=== PATIENT | female | born 1965 | race Asian ===

== ENCOUNTER 2017-03-17 11:40 | Emergency (ER) | payer OTHER ==
[2017-03-17 11:48] VITALS: BP 153/93
--- NOTE | 2017-03-17 12:16 | XRAY Preliminary Report ---
Exam: XR FINGER(S) LT IMPRESSION: No fracture. Flexion at the fourth DIP joint in all views. [facility] SITE ID: [id number]
--- NOTE | 2017-03-17 12:18 | XRAY Report ---
EXAM: LEFT FOURTH DIGIT RADIOGRAPHY EXAM DATE: 03/17/2017 12:08 PM. CLINICAL HISTORY: Trauma; jammed finger while cleaning today. Pain. COMPARISON: None. TECHNIQUE: 3 views. FINDINGS: Bones: No fracture or focal osseous lesion. Joints: The fourth DIP joint is flexed in all 3 views. No dislocation. Soft Tissues: No definite soft tissue swelling. IMPRESSION: No fracture. Flexion at the fourth DIP joint in all views. [facility] Referring Provider Line: [phone] SITE ID: [id number]
--- NOTE | 2017-03-17 12:33 | ED Physician Documentation ---
PD HPI UPPER EXT INJURY - Stated complaint Stated Complaint: L FINGER INJURY - Chief complaint Chief Complaint: Ext Problem - History obtained from History obtained from: Patient - History of Present Illness Type of injury: Other (She jammed her finger while working today and has a deformity of the left fourth finger. She is right-handed. 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 - Present Medications Home Medications: Ambulatory Orders Medication Instructions Recorded Confirmed Metformin HCl [Glucophage Xr] 850 mg PO BID 02/08/13 06/17/15 Glipizide 1 tab PO DAILY 03/17/17 03/17/17 Lisinopril 20 mg PO 03/17/17 - Allergies Allergies/Adverse Reactions: Allergies Allergy/AdvReac Type Severity Reaction Status Date / Time No Known Drug Allergies Allergy Verified 06/17/14 09:04 - Social History Does the pt smoke?: No Smoking Status: Never smoker Does the pt drink ETOH?: No Does the pt have substance abuse?: No - Immunizations Immunizations are current?: Yes PD ED PE NORMAL - Vitals Vital signs reviewed: Yes - General General: Alert and oriented X 3, No acute distress - Extremities Extremities: Other (The left fourth finger has an obvious mallet deformity at the DIP and is unable to straighten it, no tenderness. NVI at the tip.) - Neuro Neuro: Alert and oriented X 3, Normal speech - Psych Psych: Normal mood, Normal affect Results - Vitals Vitals: Vital Signs - 24 hr 03/17/17 11:45 Temperature 36.4 C L Heart Rate 77 Respiratory 16 Rate Blood Pressure 153/93 H O2 Saturation 100 Oxygen O2 Source Room air - Rads (name of study) Left fourth finger Radiology: EMP read contemporaneously (No fracture, she has flexion at the fourth DIP in all views.) PD MEDICAL DECISION MAKING - ED course ED course: She was placed in a plastic mallet finger splint and advised on its use and the necessity for its use to promote healing. Departure - Departure Disposition: 01 Home, Self Care Clinical Impression: Mallet deformity of left ring finger Condition: Good Record reviewed to determine appropriate education?: Yes Instructions: ED Fx Mallet Finger Follow-Up: [facility] [Provider Group] - Within 1 week Comments: Keep the mallet finger splint on at all times. Follow-up with the orthopedic clinic in 1 week. You can take Tylenol or ibuprofen as needed [id number] as per package directions for pain. Your blood pressure was elevated today on check into the emergency department. This does not mean that you have hypertension, it is a common phenomenon to come to the emergency department and have elevated blood pressure. I recommend that she see your primary care physician within the week to have it rechecked when you are feeling better. Forms: Activity restrictions
[2017-03-17] MEDS: IBUPROFEN 600 MG TABLET PO STA (12:34)
[2017-03-17] MEDS ORDERED: IBUPROFEN 600 MG TABLET PO ONE (12:39)
== END 2017-03-17 12:37 | disposition home or self-care (01) ==
LOC: ED 11:40
DX: M20.012 Mallet finger of left finger(s) (principal); I10 Essential (primary) hypertension; E11.9 Type 2 diabetes mellitus without complications; Z79.84 Long term (current) use of oral hypoglycemic drugs
CPT/HCPCS: 73140; 99283

== ENCOUNTER 2017-09-03 07:23 | Outpatient (CLI) | payer OTHER ==
--- NOTE | 2017-09-03 15:21 | XRAY Report ---
LEFT THUMB THREE VIEWS: 09/03/2017 HISTORY: Pain. COMPARISON: None. FINDINGS: Three views of the left thumb show no fracture, malalignment, degenerative narrowing, dislocation, or other abnormality. IMPRESSION: NEGATIVE THREE VIEW LEFT THUMB. TD: 09/03/2017 15:21
== END 2017-09-03 07:24 | disposition home or self-care (01) ==
LOC: DI 07:23
PROVIDERS: ATTEND Family Medicine
DX: M79.645 Pain in left finger(s) (principal)
CPT/HCPCS: 73140

== ENCOUNTER 2017-11-28 11:23 | Outpatient (CLI) | payer OTHER | END 2017-11-28 11:24 | disposition home or self-care (01) | LOC: RT 11:23 | PROVIDERS: ATTEND Orthopaedic Surgery | DX: Z01.810 Encounter for preprocedural cardiovascular examination (principal); M65.312 Trigger thumb, left thumb | CPT/HCPCS: 93005 ==

== ENCOUNTER 2018-05-14 22:54 | Outpatient (CLI) | payer OTHER ==
--- NOTE | 2018-05-19 13:41 | Ultrasound Report ---
Reason: STRAIN OF MUSCLE AND TENDONS AT LEFT KNEE Procedure Date: 05/15/2018 Accession Number: [id number] / [id number] Procedure: US - Ext Limited Non Vascular CPT Code: FULL RESULT: EXAM: RIGHT/LEFT UPPER EXTREMITY ULTRASOUND - LIMITED EXAM DATE: 05/15/2018 02:31 AM. CLINICAL HISTORY: Strain of muscle and tendons at left knee. COMPARISON: None. TECHNIQUE: Real-time scanning was performed with static images obtained. FINDINGS: There are 2 irregular fluid collections measuring 1.6 x 0.6 x 1.2 cm and 1.4 x 1.3 x 0.6 cm respectively. Neither demonstrates abnormal vascularity by color Doppler. The appearance is nonspecific but could be due to a ruptured Yan's cyst. For definitive establishment of the diagnosis of Yan's cyst by ultrasound, cystic communication with the joint space and the cyst arising between the medial head of the gastrocnemius and the semimembranosus tendon is required. This is not demonstrated on these still images. IMPRESSION: Nonspecific cystic structures, possibly ruptured Yan's cyst. [facility]
== END 2018-05-14 22:55 | disposition home or self-care (01) ==
LOC: DI 22:54
PROVIDERS: ATTEND Family Medicine
DX: S86.912D Strain of unspecified muscle(s) and tendon(s) at lower leg level, left leg, subsequent encounter (principal)
CPT/HCPCS: 76882

== ENCOUNTER 2018-08-22 08:47 | Emergency (ER) | payer BC ==
[2018-08-22] MEDS ORDERED: ACETAMINOPHEN 500 MG TABLET PO STA (09:00)
[2018-08-22] MEDS ORDERED: NAPROXEN 250 MG TABLET PO STA (09:00)
[2018-08-22] MEDS ORDERED: BENZONATATE 100 MG CAPSULE PO STA (10:07)
[2018-08-22 10:12] VITALS: BP 133/80
--- NOTE | 2018-08-22 10:13 | ED Physician Documentation ---
History of Present Illness - Stated complaint Stated Complaint: FLU LIKE SX - Chief complaint Chief Complaint: Resp - Additonal information Additional information: 53-year-old female presents with 3 days of fever, chills, body aches, general fatigue, sore throat and cough. The patient's symptoms are controlled with Tylenol and Motrin. No reports of productive cough or shortness of breath. No abdominal pain, vomiting or diarrhea. No other associated symptoms. 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 - Present Medications Home Medications: Ambulatory Orders Medication Instructions Recorded Confirmed Metformin HCl [Glucophage Xr] 850 mg PO BID 02/08/13 06/17/15 Glipizide 1 tab PO DAILY 03/17/17 03/17/17 Lisinopril 20 mg PO 03/17/17 - Allergies Allergies/Adverse Reactions: Allergies Allergy/AdvReac Type Severity Reaction Status Date / Time No Known Drug Allergies Allergy Verified 08/22/18 08:58 - Social History Does the pt smoke?: No Smoking Status: Never smoker Does the pt drink ETOH?: No Does the pt have substance abuse?: No - Immunizations Immunizations are current?: Yes PD ED PE NORMAL - General General: Alert and oriented X 3, No acute distress - HEENT HEENT: Atraumatic, PERRL, EOMI, Ears normal, Moist mucous membranes, Pharynx benign - Neck Neck: Supple, no meningeal sign - Cardiac Cardiac: RRR (Regular tachycardia secondary to the fever and influenza virus), Strong equal pulses - Respiratory Respiratory: No respiratory distress, Clear bilaterally - Abdomen Abdomen: Soft, Non tender - Back Back: No CVA TTP - Derm Derm: Normal color - Extremities Extremities: No deformity, No edema - Neuro Neuro: Alert and oriented X 3, Normal speech - Psych Psych: Normal affect Results - Vitals Vitals: Vital Signs - 24 hr 08/22/18 08/22/18 08/22/18 08:56 10:12 11:40 Temperature 38.9 C H 37.7 C H Heart Rate 138 H 124 H 105 H Respiratory 18 18 Rate Blood Pressure 178/88 H 133/80 H O2 Saturation 96 98 Oxygen O2 Source Room air - Labs Labs: Laboratory Tests 08/22/18 08/22/18 09:00 10:57 POC Whole Bld Glucose 371 H Influenza A (Rapid) POSITIVE H Influenza B (Rapid) Negative - Rads (name of study) CXR Radiology: Final report received, See rad report PD MEDICAL DECISION MAKING - ED course ED course: Well-appearing, nontoxic and well-hydrated individual. The patient's had influenza now for 3 days and does not meet criteria for Tamiflu. After IV fluids and antipyretics the patient appears much improved and her heart rate is down. There is no other secondary evidence of a bacterial superimposed infection. Presently, the patient appears appropriate for discharge and ongoing outpatient management. The patient will return to the emergency department for any worsening or any concerns Departure - Departure Disposition: 01 Home, Self Care Clinical Impression: Influenza A Condition: Good Instructions: ED Fever Control, ED Influenza Ch Follow-Up: Andrea Packer DO [Primary Care Provider] - Within 1 week Comments: Please return to the emergency department for worsening symptoms or any concerns
[2018-08-22] MEDS ORDERED: SODIUM CHLORIDE 0.9% 2,000 ML IV ONE (10:18)
--- NOTE | 2018-08-22 11:03 | XRAY Report ---
Reason: cough Procedure Date: 08/22/2018 Accession Number: [id number] / [id number] Procedure: XR - Chest 2 View X-Ray CPT Code: 20589 FULL RESULT: EXAM: CHEST RADIOGRAPHY EXAM DATE: 08/22/2018 10:40 AM. CLINICAL HISTORY: Cough. COMPARISON: XR CHEST 1 VIEWS 09/17/2007 8:17 AM. TECHNIQUE: 2 views. FINDINGS: Lungs/Pleura: No focal opacities evident. No pleural effusion. No pneumothorax. Normal volumes. Mediastinum: Heart and mediastinal contours are unremarkable. Other: None. IMPRESSION: No focal consolidation. [facility]
== END 2018-08-22 12:50 | disposition home or self-care (01) ==
LOC: ED 08:47
DX: J10.89 Influenza due to other identified influenza virus with other manifestations (principal); I10 Essential (primary) hypertension; E11.9 Type 2 diabetes mellitus without complications; Z79.84 Long term (current) use of oral hypoglycemic drugs
CPT/HCPCS: 71046; 87275; 87276; 99283; A9270

== ENCOUNTER 2018-10-11 11:30 | Emergency (ER) | payer OTHER, BC ==
[2018-10-11] MEDS ORDERED: TETANUS/DIPHTHERIA/PERTUSSIS 0.5 ML SYRINGE IM ONE (11:45)
[2018-10-11 11:49] VITALS: BP 176/96
--- NOTE | 2018-10-11 12:32 | ED Physician Documentation ---
PD HPI UPPER EXT INJURY - Stated complaint Stated Complaint: THUMB LAC - Chief complaint Chief Complaint: Laceration - History obtained from History obtained from: Patient - History of Present Illness Location: Left, Finger (thumb) Type of injury: Laceration Where injury occurred: Work Timing - onset: Enter time (1129), Today Timing - duration: Minutes Timing - details: Abrupt onset, Still present Improved by: Rest Worsened by: Moving, Palpating Associated symptoms: No: Weakness, Numbness, Tingling, Swelling Contributing factors: No: Anticoagulated Similar symptoms before: Diagnosis (laceration) Recently seen: Not recently seen - Additonal information Additional information: Previously well 53-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 There is no apparent blood on the piece of glass and it looks like a piece of lab tucker, like maybe the top to a graduated cylinder, or perhaps to some other glass object more likely a patient's bong. Review of Systems Constitutional: denies: Fever Eyes: denies: Decreased vision Ears: denies: Ear pain Nose: denies: Congestion Respiratory: denies: Cough GI: denies: Vomiting Skin: reports: Laceration (s). denies: Rash Musculoskeletal: reports: Extremity pain. 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 - Present Medications Home Medications: Ambulatory Orders Medication Instructions Recorded Confirmed Metformin HCl [Glucophage Xr] 850 mg PO BID 02/08/13 06/17/15 Glipizide 1 tab PO DAILY 03/17/17 03/17/17 Lisinopril 20 mg PO 03/17/17 - Allergies Allergies/Adverse Reactions: Allergies Allergy/AdvReac Type Severity Reaction Status Date / Time No Known Drug Allergies Allergy Verified 10/11/18 11:48 - Social History Does the pt smoke?: No Smoking Status: Never smoker Does the pt drink ETOH?: No Does the pt have substance abuse?: No - Immunizations Immunizations are current?: Yes - POLST Patient has POLST: No PD ED PE NORMAL - Vitals Vital signs reviewed: Yes (hypertensive ) - General General: No acute distress, Well developed/nourished - Respiratory Respiratory: No respiratory distress - Derm Derm: Normal color, Warm and dry - Extremities Extremities: No deformity, Other (There is a 1cm superficial laceration to the left thumb distal n/v is intact. 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, No motor deficit, No sensory deficit, Normal speech Eye Opening: Spontaneous Motor: Obeys Commands Verbal: Oriented GCS Score: 15 - Psych Psych: Normal mood, Normal affect Results - Vitals Vitals: Vital Signs - 24 hr 10/11/18 11:46 Temperature 36.8 C Heart Rate 89 Respiratory 12 Rate Blood Pressure 176/96 H O2 Saturation 99 Oxygen O2 Source Room air PD MEDICAL DECISION MAKING - ED course Complexity details: considered differential, d/w patient ED course: 53-year-old female with a superficial laceration to her left thumb is given a tetanus booster the wound is covered with Dermabond and a Band-Aid. Departure - Departure Disposition: 01 Home, Self Care Clinical Impression: Thumb laceration Qualifiers: Encounter type: initial encounter Damage to nail status: without damage Foreign body presence: without foreign body Laterality: left Qualified Code(s): S61.012A - Laceration without foreign body of left thumb without damage to nail, initial encounter Condition: Stable Instructions: ED Laceration Hand Follow-Up: Andrea Packer DO [Primary Care Provider] -
== END 2018-10-11 13:30 | disposition home or self-care (01) ==
LOC: ED 11:30
DX: S61.012A Laceration without foreign body of left thumb without damage to nail, initial encounter (principal); W25.XXXA Contact with sharp glass, initial encounter; Y93.E9 Activity, other interior property and clothing maintenance; Y92.230 Patient room in hospital as the place of occurrence of the external cause; Y99.0 Civilian activity done for income or pay; I10 Essential (primary) hypertension; E11.9 Type 2 diabetes mellitus without complications; Z79.4 Long term (current) use of insulin; Z79.899 Other long term (current) drug therapy
CPT/HCPCS: 90471; 99282; 99283

== ENCOUNTER 2019-11-29 09:03 | Outpatient (CLI) | payer BC ==
--- NOTE | 2019-11-29 09:26 | CT Report ---
PROCEDURE: HEAD WO INDICATIONS: NEW ONSET HEADACHES TECHNIQUE: Noncontrast 4.5 mm thick angled axial sections acquired from the foramen magnum to the vertex. For r adiation dose reduction, the following was used: automated exposure control, adjustment of mA and/or kV according to patient size. COMPARISON: None. FINDINGS: Image quality: Excellent. CSF spaces: Basal cisterns are patent. No extra-axial fluid collections. Ventricles are normal in size and shape. Brain: No midline shift. No intracranial masses or hemorrhage. Carpenter-white matter interface is norm al. Skull and face: Calvarium and visualized facial bones are intact, without suspicious lesions. Bilateral maxillary sinus mucosal thickening and disease, right greater than left. There is also part ial opacification of both ethmoid air cells. There is mild bilateral sphenoid sinus disease. Underpne umatized mastoid air cells bilaterally Presumed cerumen/debris within the left external auditory canal although recommend direct visual insp ection to exclude soft tissue mass. IMPRESSION: No acute intracranial process. Diffuse paranasal sinus disease as above Presumed cerumen/debris within the left external auditory canal although recommend direct visual insp ection to exclude soft tissue mass. Reviewed by: Juan Stewart MD on 11/29/2019 9:25 AM PDT Approved by: Juan Stewart MD on 11/29/2019 9:25 AM PDT Station ID: [id number]
== END 2019-11-29 09:04 | disposition home or self-care (01) ==
LOC: DI 09:03
PROVIDERS: ATTEND Family Medicine
DX: J32.0 Chronic maxillary sinusitis (principal); J34.89 Other specified disorders of nose and nasal sinuses; R93.89 Abnormal findings on diagnostic imaging of other specified body structures
CPT/HCPCS: 70450

== ENCOUNTER 2020-01-04 15:14 | Emergency (ER) | payer OTHER, BC ==
[2020-01-04 15:23] VITALS: BP 161/92
--- NOTE | 2020-01-04 16:15 | ED Physician Documentation ---
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 Has had pains similar area in the past and had PT and some meds for it couple years ago. Was doing better. Symptoms again few weeks, intermittent and now consistent with walking/work for several day). No: Fall, Twist Where injury occurred: Work Timing - onset: How many weeks ago Timing - details: Gradual onset, Still present, Waxing and waning Improved by: Rest Worsened by: Moving, Other (torsional movement and with bending it beyond about 30 degrees. now hurting with regular standing the past 2-3 days.) Associated symptoms: No: Weakness, Numbness, Swelling Contributing factors: No: Prior ortho surgery Similar symptoms before: No diagnosis (knee strain versus meniscal injury.) Recently seen: Not recently seen Review of Systems Constitutional: denies: Fever, Chills, Myalgias Nose: denies: Rhinorrhea / runny nose, Congestion Throat: denies: Sore throat Respiratory: denies: Cough Skin: denies: Rash, Abrasion (s) Neurologic: denies: Focal weakness, Numbness PD PAST MEDICAL HISTORY - Past Medical History Cardiovascular: Hypertension Endocrine/Autoimmune: Type 2 diabetes - Past Surgical History 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 - Present Medications Home Medications: Ambulatory Orders Medication Instructions Recorded Confirmed Metformin HCl [Glucophage Xr] 850 mg PO BID 02/08/13 06/17/15 Glipizide 1 tab PO DAILY 03/17/17 03/17/17 lisinopriL [Lisinopril] 20 mg PO 03/17/17 Hydrocodone/Acetaminophen [Harris 1 each PO Q6H PRN #15 tablet 01/04/20 5-325 Tablet] Naproxen 500 mg PO BID #25 tablet 01/04/20 - Allergies Allergies/Adverse Reactions: Allergies Allergy/AdvReac Type Severity Reaction Status Date / Time No Known Drug Allergies Allergy Verified 01/04/20 16:00 - Social History Does the pt smoke?: No Smoking Status: Never smoker Does the pt drink ETOH?: No Does the pt have substance abuse?: No - Immunizations Immunizations are current?: Yes - POLST Patient has POLST: No PD ED PE NORMAL - Vitals Vital signs reviewed: Yes - General General: Alert and oriented X 3, No acute distress, Well developed/nourished - Back Back: No spinal TTP - Derm Derm: Normal color, Warm and dry - Extremities Extremities: Other (left knee with tenderness along medial joint line but also at medial lower vastus lateralis. NO rash nor sores. Pain but no laxity with valgus MCL testing. Varus is without pain/laxity. NO warmth, redness, effusion, nor joint tenderness per se. Cruciate testing firm and not painful. ) - Neuro Neuro: Alert and oriented X 3, No motor deficit, No sensory deficit Results - Vitals Vitals: Vital Signs - 24 hr 01/04/20 15:22 Temperature 36.9 C Heart Rate 91 Respiratory 16 Rate Blood Pressure 161/92 H O2 Saturation 99 Oxygen O2 Source Room air PD MEDICAL DECISION MAKING - ED course Complexity details: considered differential (seems likely tendonitis medial knee and/or MCL strain. No effusion. No indication for plain xrays. ), d/w patient Departure - Departure Disposition: 01 Home, Self Care Clinical Impression: Acute pain of left knee MCL sprain of left knee Qualifiers: Encounter type: initial encounter Qualified Code(s): S83.412A - Sprain of medial collateral ligament of left knee, initial encounter Condition: Stable Record reviewed to determine appropriate education?: Yes Instructions: Medial Collateral Ligament Probs, ED Sprain Knee Follow-Up: Andrea Packer DO [Primary Care Provider] - Misha Vaughan MD [Provider Admit Priv/Credential] - Prescriptions: Naproxen 500 mg PO BID #25 tablet Hydrocodone/Acetaminophen [Harris 5-325 Tablet] 1 each PO Q6H PRN #15 tablet PRN Reason: Pain Comments: Use the knee brace when up and around to limit the sideways and rotational movement of the knee to help with the MCL ligaments and the inner knee muscles. We will have it set to range between 0 and 30 degrees so does not bend too much. Anti-inflammatory of naproxen twice daily with food for the next 7 to 10 days. Add Tylenol every 6 hours if needed or hydrocodone for worse pain. Off work for the next several days this week to provide some healing time with this. Follow-up with orthopedics at their nearest appointment, call for an appointment. Forms: Activity restrictions Discharge Date/Time: 01/04/20 17:57
[2020-01-04] MEDS ORDERED: ACETAMINOPHEN 325 MG TABLET PO STA (16:40)
[2020-01-04] MEDS ORDERED: NAPROXEN 250 MG TABLET PO STA (16:40)
== END 2020-01-04 17:57 | disposition home or self-care (01) ==
LOC: ED 15:14
DX: S83.412A Sprain of medial collateral ligament of left knee, initial encounter (principal); X50.1XXA Overexertion from prolonged static or awkward postures, initial encounter; Y92.239 Unspecified place in hospital as the place of occurrence of the external cause; Y99.0 Civilian activity done for income or pay; I10 Essential (primary) hypertension; E11.9 Type 2 diabetes mellitus without complications; Z79.84 Long term (current) use of oral hypoglycemic drugs
CPT/HCPCS: 99282; 99284; A9270

== ENCOUNTER 2020-02-14 12:08 | Outpatient (CLI) | payer BC ==
[2020-02-14 12:20] LABS: BASOPHILS # (AUTO) 0.1 10^3/uL (0.0-0.1); BASOPHILS % (AUTO) 0.7 %; EOSINOPHILS # (AUTO) 0.7 10^3/uL (0.0-0.7); HGB - HEMOGLOBIN 13.3 g/dL (12.0-16.0); LYMPHOCYTES # (AUTO) 2.3 10^3/uL (1.5-3.5); LYMPHOCYTES % (AUTO) 16.6 %; MEAN CORPUSCULAR HEMOGLOBIN 26.4 pg (27.0-31.0); MEAN CORPUSCULAR HGB CONC 31.9 g/dL (32.0-36.0); MEAN CORPUSCULAR VOLUME 82.7 fL (81.0-99.0); MEAN PLATELET VOLUME 10.3 fL (7.9-10.8); MONOCYTES # (AUTO) 0.5 10^3/uL (0.0-1.0); MONOCYTES % (AUTO) 3.4 %; NEUTROPHILS % (AUTO) 73.7 %; PLT - PLATELET COUNT 385 10^3/uL (130-450); RED BLOOD COUNT 5.04 10^6/uL (4.20-5.40); RED CELL DISTRIBUTION WIDTH 13.8 % (12.0-15.0); WHITE BLOOD COUNT 13.5 x10^3/uL (4.8-10.8)
== END 2020-02-14 12:09 | disposition home or self-care (01) ==
LOC: LAB 12:08
PROVIDERS: ATTEND Podiatrist
DX: R60.9 Edema, unspecified (principal)
CPT/HCPCS: 36415; 84550; 85025; 85651

== ENCOUNTER 2020-03-06 13:51 | Outpatient (CLI) | payer BC ==
[2020-03-06 14:36] LABS: BASOPHILS # (AUTO) 0.1 10^3/uL (0.0-0.1); BASOPHILS % (AUTO) 0.7 %; EOSINOPHILS # (AUTO) 0.4 10^3/uL (0.0-0.7); EOSINOPHILS % (AUTO) 4.1 %; HGB - HEMOGLOBIN 13.4 g/dL (12.0-16.0); LYMPHOCYTES # (AUTO) 1.8 10^3/uL (1.5-3.5); LYMPHOCYTES % (AUTO) 18.3 %; MEAN CORPUSCULAR HEMOGLOBIN 27.2 pg (27.0-31.0); MEAN CORPUSCULAR HGB CONC 33.3 g/dL (32.0-36.0); MEAN CORPUSCULAR VOLUME 81.9 fL (81.0-99.0); MEAN PLATELET VOLUME 10.6 fL (7.9-10.8); MONOCYTES # (AUTO) 0.4 10^3/uL (0.0-1.0); MONOCYTES % (AUTO) 4.3 %; NEUTROPHILS # (AUTO) 7.1 10^3/uL (1.5-6.6); NEUTROPHILS % (AUTO) 72.2 %; PLT - PLATELET COUNT 304 10^3/uL (130-450); RED BLOOD COUNT 4.92 10^6/uL (4.20-5.40); RED CELL DISTRIBUTION WIDTH 13.4 % (12.0-15.0); WHITE BLOOD COUNT 9.9 x10^3/uL (4.8-10.8)
== END 2020-03-06 13:52 | disposition home or self-care (01) ==
LOC: LAB 13:51
PROVIDERS: ATTEND Podiatrist
DX: M79.674 Pain in right toe(s) (principal); R60.0 Localized edema
CPT/HCPCS: 36415; 84550; 85025

== ENCOUNTER 2020-04-14 14:24 | Outpatient (CLI) | payer BC ==
[2020-04-14 14:49] LABS: BASOPHILS # (AUTO) 0.1 10^3/uL (0.0-0.1); BASOPHILS % (AUTO) 0.5 %; EOSINOPHILS # (AUTO) 0.4 10^3/uL (0.0-0.7); EOSINOPHILS % (AUTO) 3.8 %; HGB - HEMOGLOBIN 13.3 g/dL (12.0-16.0); LYMPHOCYTES % (AUTO) 17.9 %; MEAN CORPUSCULAR HEMOGLOBIN 27.7 pg (27.0-31.0); MEAN CORPUSCULAR HGB CONC 33.9 g/dL (32.0-36.0); MEAN CORPUSCULAR VOLUME 81.7 fL (81.0-99.0); MEAN PLATELET VOLUME 10.4 fL (7.9-10.8); MONOCYTES # (AUTO) 0.6 10^3/uL (0.0-1.0); MONOCYTES % (AUTO) 4.9 %; NEUTROPHILS # (AUTO) 8.2 10^3/uL (1.5-6.6); NEUTROPHILS % (AUTO) 72.3 %; PLT - PLATELET COUNT 331 10^3/uL (130-450); RED CELL DISTRIBUTION WIDTH 13.7 % (12.0-15.0); WHITE BLOOD COUNT 11.4 x10^3/uL (4.8-10.8)
[2020-04-14 14:50] LABS: BILIRUBIN,URINE NEGATIVE (NEGATIVE); GLUCOSE, URINE (UA) 250 mg/dL (NEGATIVE); KETONES,URINE (UA) NEGATIVE (NEGATIVE); LEUKOCYTE ESTERASE, URINE NEGATIVE (NEGATIVE); NITRITE,URINE NEGATIVE (NEGATIVE); OCCULT BLOOD,URINE NEGATIVE (NEGATIVE); PROTEIN,URINE NEGATIVE (NEGATIVE); UROBILINOGEN,URINE 0.2 (NORMAL) E.U./dL (NORMAL)
[2020-04-14 14:52] LABS: CLARITY,URINE CLEAR (CLEAR)
[2020-04-14 16:03] LABS: CALCIUM 9.3 mg/dL (8.5-10.3); CREATININE 0.5 mg/dL (0.4-1.0)
[2020-04-15 07:40] LABS: HEMOGLOBIN A1c% 9.6 % (4.27-6.07)
== END 2020-04-14 14:25 | disposition home or self-care (01) ==
LOC: LAB 14:24
PROVIDERS: ATTEND Orthopaedic Surgery
DX: Z01.812 Encounter for preprocedural laboratory examination (principal); R73.9 Hyperglycemia, unspecified; N39.0 Urinary tract infection, site not specified
CPT/HCPCS: 36415; 80048; 81001; 81003; 83036; 85025; 87086

== ENCOUNTER 2020-06-01 10:24 | Outpatient (CLI) | payer BC ==
[2020-06-01 12:53] LABS: BASOPHILS # (AUTO) 0.1 10^3/uL (0.0-0.1); BASOPHILS % (AUTO) 0.8 %; BILIRUBIN,URINE NEGATIVE (NEGATIVE); EOSINOPHILS # (AUTO) 0.5 10^3/uL (0.0-0.7); EOSINOPHILS % (AUTO) 4.3 %; GLUCOSE, URINE (UA) 250 mg/dL (NEGATIVE); HGB - HEMOGLOBIN 13.9 g/dL (12.0-16.0); KETONES,URINE (UA) TRACE mg/dL (NEGATIVE); LEUKOCYTE ESTERASE, URINE NEGATIVE (NEGATIVE); LYMPHOCYTES # (AUTO) 1.9 10^3/uL (1.5-3.5); LYMPHOCYTES % (AUTO) 16.4 %; MEAN CORPUSCULAR HEMOGLOBIN 26.4 pg (27.0-31.0); MEAN CORPUSCULAR HGB CONC 31.4 g/dL (32.0-36.0); MEAN PLATELET VOLUME 10.9 fL (7.9-10.8); MONOCYTES # (AUTO) 0.7 10^3/uL (0.0-1.0); MONOCYTES % (AUTO) 6.3 %; NEUTROPHILS # (AUTO) 8.2 10^3/uL (1.5-6.6); NEUTROPHILS % (AUTO) 71.8 %; NITRITE,URINE NEGATIVE (NEGATIVE); OCCULT BLOOD,URINE TRACE-LYSE (NEGATIVE); PH,URINE 5.5 PH (5.0-7.5); PLT - PLATELET COUNT 346 10^3/uL (130-450); PROTEIN,URINE 100 mg/dL (NEGATIVE); RED BLOOD COUNT 5.26 10^6/uL (4.20-5.40); RED CELL DISTRIBUTION WIDTH 14.2 % (12.0-15.0); UROBILINOGEN,URINE 0.2 (NORMAL) E.U./dL (NORMAL); WHITE BLOOD COUNT 11.4 x10^3/uL (4.8-10.8)
[2020-06-01 12:58] LABS: CLARITY,URINE HAZY (CLEAR)
[2020-06-01 13:11] LABS: ALBUMIN 4.6 g/dL (3.2-5.5); ALBUMIN/GLOBULIN RATIO 1.2 (1.0-2.2); BILIRUBIN,TOTAL 0.3 mg/dL (0.2-1.0); CALCIUM 9.9 mg/dL (8.5-10.3); CREATININE 1.8 mg/dL (0.4-1.0); TOTAL PROTEIN 8.4 g/dL (6.7-8.2)
[2020-06-01 13:16] LABS: RBC,URINE 0-5 /HPF (0-5); SQUAMOUS EPITHELIAL CELL,UR MANY Squamous (<= Few)
[2020-06-01 13:17] LABS: BACTERIA,URINE Few /HPF (None Seen); CRYSTALS,URINE 0-2 Calcium Oxalate /LPF; MUCUS,URINE Few Strands
[2020-06-01 14:00] LABS: HEMOGLOBIN A1c% 9.1 % (4.27-6.07)
== END 2020-06-01 10:25 | disposition home or self-care (01) ==
LOC: LAB.N 10:24
PROVIDERS: ATTEND Specialist
DX: Z01.812 Encounter for preprocedural laboratory examination (principal)
CPT/HCPCS: 36415; 80053; 81001; 81003; 83036; 85025; 87086

== ENCOUNTER 2020-06-01 14:46 | Outpatient (CLI) | payer BC | END 2020-06-01 14:47 | disposition home or self-care (01) | LOC: RT 14:46 | PROVIDERS: ATTEND Specialist | DX: Z01.818 Encounter for other preprocedural examination (principal) | CPT/HCPCS: 93005 ==

== ENCOUNTER 2020-08-04 15:38 | Outpatient (CLI) | payer BC ==
[2020-08-04 16:11] LABS: BILIRUBIN,URINE NEGATIVE (NEGATIVE); GLUCOSE, URINE (UA) >=1000 mg/dL (NEGATIVE); KETONES,URINE (UA) NEGATIVE (NEGATIVE); LEUKOCYTE ESTERASE, URINE NEGATIVE (NEGATIVE); NITRITE,URINE NEGATIVE (NEGATIVE); OCCULT BLOOD,URINE SMALL (NEGATIVE); PH,URINE 5.5 PH (5.0-7.5); PROTEIN,URINE NEGATIVE (NEGATIVE); UROBILINOGEN,URINE 0.2 (NORMAL) E.U./dL (NORMAL)
[2020-08-04 16:12] LABS: CALCIUM 9.2 mg/dL (8.5-10.3); CLARITY,URINE CLEAR (CLEAR); CREATININE 0.9 mg/dL (0.4-1.0); PHOSPHORUS 3.7 mg/dL (2.5-4.6); POTASSIUM 3.9 mmol/L (3.5-5.0)
[2020-08-04 16:23] LABS: CREATININE,URINE 83.6 mg/dL; MICROALBUM/CREATININE RATIO,UR 41.9 ug/mg (<30.0); MICROALBUMIN,URINE 3.5 mg/dL (0-300.0)
[2020-08-04 16:32] LABS: BACTERIA,URINE Rare /HPF (None Seen); SQUAMOUS EPITHELIAL CELL,UR FEW Squamous (<= Few); WBC,URINE 0-3 /HPF (0-5)
== END 2020-08-04 15:39 | disposition home or self-care (01) ==
LOC: LAB 15:38
PROVIDERS: ATTEND Internal Medicine Nephrology
DX: N18.4 Chronic kidney disease, stage 4 (severe) (principal)
CPT/HCPCS: 36415; 80048; 81001; 82043; 82570; 83970; 84100; 84550

== ENCOUNTER 2020-08-23 19:37 | Outpatient (CLI) | payer BC ==
[2020-08-23 20:00] LABS: BILIRUBIN,URINE NEGATIVE (NEGATIVE); GLUCOSE, URINE (UA) >=1000 mg/dL (NEGATIVE); KETONES,URINE (UA) NEGATIVE (NEGATIVE); LEUKOCYTE ESTERASE, URINE NEGATIVE (NEGATIVE); NITRITE,URINE NEGATIVE (NEGATIVE); OCCULT BLOOD,URINE SMALL (NEGATIVE); PROTEIN,URINE 100 mg/dL (NEGATIVE); UROBILINOGEN,URINE 0.2 (NORMAL) E.U./dL (NORMAL)
[2020-08-23 20:03] LABS: CALCIUM 10.1 mg/dL (8.5-10.3); CREATININE 0.8 mg/dL (0.4-1.0); POTASSIUM 4.1 mmol/L (3.5-5.0)
[2020-08-23 20:11] LABS: BACTERIA,URINE Rare /HPF (None Seen); CASTS, URINE 0-2 Hyaline Casts /LPF; CLARITY,URINE CLEAR (CLEAR); RBC,URINE 0-5 /HPF (0-5); SQUAMOUS EPITHELIAL CELL,UR FEW Squamous (<= Few); WBC,URINE 0-3 /HPF (0-5)
[2020-08-23 20:20] LABS: CREATININE,URINE 152.7 mg/dL; MICROALBUM/CREATININE RATIO,UR 396.2 ug/mg (<30.0); MICROALBUMIN,URINE 60.5 mg/dL (0-300.0)
== END 2020-08-23 19:38 | disposition home or self-care (01) ==
LOC: LAB 19:37
PROVIDERS: ATTEND Family Medicine
DX: N18.4 Chronic kidney disease, stage 4 (severe) (principal); N17.9 Acute kidney failure, unspecified; R80.9 Proteinuria, unspecified
CPT/HCPCS: 36415; 80048; 81001; 82043; 82306; 82570

== ENCOUNTER 2020-12-07 18:19 | Outpatient (CLI) | payer BC ==
--- NOTE | 2020-12-07 12:15 | XRAY Report ---
PROCEDURE: Wrist 3 View LT INDICATIONS: L WRIST PX TECHNIQUE: 3 views of the wrist were acquired. COMPARISON: None FINDINGS: Bones: No fractures or dislocations. No suspicious bony lesions. Scaphoid view: Not obtained. Soft tissues: No suspicious soft tissue calcifications. IMPRESSION: . No visualized acute fracture or dislocation. However, occult injury cannot be excluded. Recommend s hort interval imaging follow-up in 7-10 days as clinically indicated for additional evaluation. Reviewed by: Maia Demarco MD on 12/07/2020 12:14 PM PDT Approved by: Maia Demarco MD on 12/07/2020 12:14 PM PDT Station ID: [id number]
--- NOTE | 2020-12-07 12:16 | XRAY Report ---
PROCEDURE: Shoulder 3 View LT INDICATIONS: L SHOULDER PX TECHNIQUE: 3 views of the shoulder were acquired. COMPARISON: None. FINDINGS: Bones: No fractures or dislocations. No suspicious bony lesions. Visualized ribs appear intact. M oderate acromioclavicular degenerative narrowing. Soft tissues: No suspicious soft tissue calcifications. Calcific tendinitis. IMPRESSION: Moderate acromioclavicular degenerative narrowing. Reviewed by: Maia Demarco MD on 12/07/2020 12:15 PM PDT Approved by: Maia Demarco MD on 12/07/2020 12:15 PM PDT Station ID: [id number]
== END 2020-12-07 23:59 | disposition home or self-care (01) ==
LOC: DI.N 18:19
PROVIDERS: ATTEND Orthopaedic Surgery
DX: M25.532 Pain in left wrist (principal); M19.012 Primary osteoarthritis, left shoulder

== ENCOUNTER 2021-04-09 09:11 | Outpatient (CLI) | payer BC ==
[2021-04-09 12:00] LABS: BASOPHILS # (AUTO) 0.1 10^3/uL (0.0-0.1); BASOPHILS % (AUTO) 1.2 %; EOSINOPHILS # (AUTO) 0.5 10^3/uL (0.0-0.7); EOSINOPHILS % (AUTO) 5.8 %; HCT - HEMATOCRIT 43.4 % (37.0-47.0); HGB - HEMOGLOBIN 14.4 g/dL (12.0-16.0); LYMPHOCYTES % (AUTO) 23.9 %; MEAN CORPUSCULAR HEMOGLOBIN 26.6 pg (27.0-31.0); MEAN CORPUSCULAR HGB CONC 33.2 g/dL (32.0-36.0); MEAN CORPUSCULAR VOLUME 80.2 fL (81.0-99.0); MEAN PLATELET VOLUME 11.2 fL (7.9-10.8); MONOCYTES # (AUTO) 0.5 10^3/uL (0.0-1.0); MONOCYTES % (AUTO) 5.8 %; NEUTROPHILS # (AUTO) 5.4 10^3/uL (1.5-6.6); NEUTROPHILS % (AUTO) 62.9 %; PLT - PLATELET COUNT 304 10^3/uL (130-450); RED BLOOD COUNT 5.41 10^6/uL (4.20-5.40); RED CELL DISTRIBUTION WIDTH 13.1 % (12.0-15.0); WHITE BLOOD COUNT 8.5 x10^3/uL (4.8-10.8)
[2021-04-09 12:18] LABS: ESTIMATED AVERAGE GLUCOSE 315 mg/dL (70-100); HEMOGLOBIN A1c% 12.6 % (4.27-6.07)
[2021-04-09 12:21] LABS: THYROID STIMULATING HORMONE 3.62 uIU/mL (0.34-5.60)
[2021-04-09 12:28] LABS: ALBUMIN 4.3 g/dL (3.2-5.5); ALBUMIN/GLOBULIN RATIO 1.2 (1.0-2.2); ALKALINE PHOSPHATASE 91 IU/L (42-121); ALT ALANINE AMINOTRANSFERASE 28 IU/L (10-60); AST ASPARTATE AMINOTRANSFERASE 20 IU/L (10-42); BILIRUBIN,TOTAL 0.7 mg/dL (0.2-1.0); BUN - BLOOD UREA NITROGEN 20 mg/dL (6-20); CALCIUM 9.5 mg/dL (8.5-10.3); CARBON DIOXIDE - CO2 25 mmol/L (21-32); CHLORIDE 100 mmol/L (101-111); CHOL/HDL RATIO 3.2 (<4.4); CHOLESTEROL 239 mg/dL; CREATININE 0.6 mg/dL (0.4-1.0); GFR - MDRD 105 (>89); GLUCOSE 333 mg/dL (70-100); HDL CHOLESTEROL 74 mg/dL; LDL CHOLESTEROL,CALCULATED 123 mg/dL; LDL/HDL RATIO 1.7 (<4.4); MAGNESIUM 1.7 mg/dL (1.7-2.8); POTASSIUM 4.1 mmol/L (3.5-5.0); SODIUM 137 mmol/L (135-145); TOTAL PROTEIN 7.8 g/dL (6.7-8.2); TRIGLYCERIDES 212 mg/dL; VLDL CHOLESTEROL 42 mg/dL
[2021-04-09 13:06] LABS: CREATININE,URINE 142.6 mg/dL; MICROALBUM/CREATININE RATIO,UR 138.8 ug/mg (<30.0); MICROALBUMIN,URINE 19.8 mg/dL (0-300.0)
== END 2021-04-09 09:12 | disposition home or self-care (01) ==
LOC: LAB.N 09:11
PROVIDERS: ATTEND Physician Assistant Medical
DX: E11.8 Type 2 diabetes mellitus with unspecified complications (principal); E78.5 Hyperlipidemia, unspecified; R00.2 Palpitations; L40.50 Arthropathic psoriasis, unspecified
CPT/HCPCS: 36415; 80053; 80061; 82043; 82570; 83036; 83721; 83735; 84443; 85025

== ENCOUNTER 2021-04-23 09:58 | Outpatient (CLI) | payer BC ==
--- NOTE | 2021-04-24 14:08 | Mammography Report ---
BILATERAL DIGITAL SCREENING MAMMOGRAM 3D/2D: 04/23/2021 CLINICAL: Routine screening. Comparison is made to exams dated: 03/26/2017 mammogram - [facility], 07/23/2013 mammogram, 07/22 mammogram, 03/12/2010 mammogram, 03/12/2010 ultrasound, and 09/17/2007 mammogram - [facility]. The tissue of both breasts is heterogeneously dense. This may lower the sensitivity of mammography. There is a possible asymmetry in the left breast middle depth central to the nipple seen on the medio lateral oblique view only. There is architectural distortion associated with the asymmetry. No other significant masses, calcifications, or other findings are seen in either breast. IMPRESSION: INCOMPLETE: NEEDS ADDITIONAL IMAGING EVALUATION The possible asymmetry in the left breast is indeterminate. A diagnostic mammogram and ultrasound is recommended. This exam was interpreted at Station ID: [id number]. NOTE: For mammograms, a report in lay terms will be sent to the patient. Approximately 15% of breast malignancies will not be visualized mammographically. In the management of a palpable breast mass, a negative mammogram must not discourage biopsy of a clinically suspicious lesion. Electronically Signed By: Anoop Marrero M.D., jr/wilbert:04/23/2021 13:42:32 ACR BI-RADS Category 0: Incomplete 3340F PARENCHYMAL PATTERN: (D) - The breast(s) demonstrate(s) heterogeneously dense fibroglandular parrafael dawn. BI-RADS CATEGORY: (0) - 0 Mammo and [place] [id number] Immediate follow-up LATERALITY: (B)
== END 2021-04-23 09:59 | disposition home or self-care (01) ==
LOC: DI.N 09:58
DX: Z12.31 Encounter for screening mammogram for malignant neoplasm of breast (principal); R92.8 Other abnormal and inconclusive findings on diagnostic imaging of breast

== ENCOUNTER 2021-06-14 09:13 | Outpatient (CLI) | payer BC ==
--- NOTE | 2021-06-15 10:45 | Ultrasound Report ---
LIMITED ULTRASOUND OF LEFT BREAST: 06/14/2021 CLINICAL: Patient returns today to evaluate a focal asymmetry in the left breast. Comparison is made to exams dated: 06/14/2021 mammogram, 04/23/2021 mammogram - [facility], 03/26/2017 mammogram - [facility], 07/23/2013 mammogram, 07/22/2012 mammogram, and 2009 mammogram - [facility]. Color flow and real-time ultrasound of the left breast 9-12 o'clock region were performed on the are as of interest. Carpenter scale images of the real-time examination were reviewed. There is a 0.8 cm x 0.2 cm x 0.5 cm oval mass with indistinct margins in the left breast at 10 o'cloc k anterior depth. This oval mass is of mixed echogenicity. There is suggestion of a fatty hilum. Th is may correlate with mammography findings. Color flow imaging demonstrates that there is an adjacen t vascularity. IMPRESSION: PROBABLY BENIGN The 0.8 cm x 0.2 cm x 0.5 cm oval mass in the left breast resembles a lymph node and is probably mumtaz gn. Follow-up mammogram and ultrasound in 6 months are recommended. A follow-up mammogram and an ultrasound in 6 months are recommended to demonstrate stability. This exam was interpreted at Station ID: [id number]. Electronically Signed By: Cr Miles M.D. ddp/:06/14/2021 14:51:06 Ultrasound BI-RADS: 3 Probably benign BI-RADS CATEGORY: (3) - 3 Mammo and US [id number] 6 month follow-up LATERALITY: (B)
--- NOTE | 2021-06-15 10:45 | Mammography Report ---
UNILATERAL LEFT DIGITAL DIAGNOSTIC MAMMOGRAM 3D/2D: 06/14/2021 CLINICAL: Patient returns today to evaluate an asymmetry in the left breast. Comparison is made to exams dated: 04/23/2021 mammogram - [facility], 03/26/2017 [facility], 07/23/2013 mammogram, 07/22/2012 mammogram, 03/12/2010 mammogram, and 03/12 ultrasound - [facility]. The tissue of left breast is heterogeneously dense. This may lower the sensitivity of mammography. There is an oval low density asymmetry with an indistinct margin in the left breast middle depth supe rior region seen on the mediolateral oblique view only. This persists on additional views. No other significant masses or calcifications are seen in the breast. IMPRESSION: INCOMPLETE: NEEDS ADDITIONAL IMAGING EVALUATION The oval low density asymmetry in the left breast is indeterminate. An ultrasound is recommended. Ultrasound will be performed immediately following the current exam. This exam was interpreted at Station ID: [id number]. NOTE: For mammograms, a report in lay terms will be sent to the patient. Approximately 15% of breast malignancies will not be visualized mammographically. In the management of a palpable breast mass, a negative mammogram must not discourage biopsy of a clinically suspicious lesion. Electronically Signed By: Cr Miles M.D. ddp/:06/14/2021 14:49:23 ACR BI-RADS Category 0: Incomplete 3340F PARENCHYMAL PATTERN: (D) - The breast(s) demonstrate(s) heterogeneously dense fibroglandular penelope dawn. BI-RADS CATEGORY: (0) - 0 Ultrasound [id number] Immediate follow-up LATERALITY: (B)
== END 2021-06-14 09:14 | disposition home or self-care (01) ==
LOC: DI 09:13
PROVIDERS: ATTEND Nurse Practitioner Family
DX: R92.8 Other abnormal and inconclusive findings on diagnostic imaging of breast (principal)

== ENCOUNTER 2021-06-30 10:24 | Outpatient (CLI) | payer BC ==
[2021-06-30 13:57] LABS: CALCIUM 9.8 mg/dL (8.5-10.3); CREATININE 0.7 mg/dL (0.4-1.0); POTASSIUM 4.2 mmol/L (3.5-5.0)
[2021-06-30 20:21] LABS: ESTIMATED AVERAGE GLUCOSE 326 mg/dL (70-100)
== END 2021-06-30 10:25 | disposition home or self-care (01) ==
LOC: LAB.N 10:24
PROVIDERS: ATTEND Physician Assistant Medical
DX: E11.8 Type 2 diabetes mellitus with unspecified complications (principal)
CPT/HCPCS: 36415; 80048; 83036

== ENCOUNTER 2021-12-31 09:34 | Outpatient (CLI) | payer OTHER ==
--- NOTE | 2022-01-01 09:12 | Mammography Report ---
UNILATERAL LEFT DIGITAL DIAGNOSTIC MAMMOGRAM 3D/2D: 12/31/2021 CLINICAL: Patient returns for a 6 month follow up of the left breast. Comparison is made to exams dated: 06/14/2021 mammogram, 04/23/2021 mammogram - [facility], 03/26/2017 mammogram - [facility], and 07/23/2013 mammogram - [facility] . The tissue of left breast is heterogeneously dense. This may lower the sensitivity of mammography. There is a stable benign 0.8 cm x 0.2 cm x 0.5 cm asymmetry in the left breast at 11 o'clock anterior depth. No other significant masses or calcifications are seen in the breast. IMPRESSION: BENIGN There is no mammographic evidence of malignancy. Return to annual mammogram screening schedule is rec ommended. Based on the Tyrer Cuzick model (a risk assessment model) the patients lifetime risk is 11.1% and he r 10 year risk is 3.2%. According to the ACR, ACS, and NCCN guidelines, an annual breast MRI exam johanny ng with mammogram is recommended if the patients lifetime risk is 20% or greater. This exam was interpreted at Station ID: [id number]. NOTE: For mammograms, a report in lay terms will be sent to the patient. Approximately 15% of breast malignancies will not be visualized mammographically. In the management of a palpable breast mass, a negative mammogram must not discourage biopsy of a clinically suspicious lesion. Electronically Signed By: Anoop Marrero M.D., jr/wilbert:12/31/2021 11:39:48 ACR BI-RADS Category 2: Benign Finding(s) 3342F PARENCHYMAL PATTERN: (D) - The breast(s) demonstrate(s) heterogeneously dense fibroglandular parenchy ma. BI-RADS CATEGORY: (2) - 2 Mammogram [id number] return to screening LATERALITY: (B)
== END 2021-12-31 09:35 | disposition home or self-care (01) ==
LOC: DI 09:34
PROVIDERS: ATTEND Nurse Practitioner Family
DX: R92.8 Other abnormal and inconclusive findings on diagnostic imaging of breast (principal)

== ENCOUNTER 2022-06-08 08:00 | Outpatient (CLI) | payer OTHER ==
[2022-06-08 18:57] LABS: BASOPHILS # (AUTO) 0.1 10^3/uL (0.0-0.1); BASOPHILS % (AUTO) 0.8 %; EOSINOPHILS # (AUTO) 0.5 10^3/uL (0.0-0.7); EOSINOPHILS % (AUTO) 4.1 %; HCT - HEMATOCRIT 43.1 % (37.0-47.0); LYMPHOCYTES # (AUTO) 2.4 10^3/uL (1.5-3.5); LYMPHOCYTES % (AUTO) 19.2 %; MEAN CORPUSCULAR HGB CONC 32.5 g/dL (32.0-36.0); MEAN CORPUSCULAR VOLUME 83.2 fL (81.0-99.0); MEAN PLATELET VOLUME 11.3 fL (7.9-10.8); MONOCYTES # (AUTO) 0.7 10^3/uL (0.0-1.0); MONOCYTES % (AUTO) 5.7 %; NEUTROPHILS # (AUTO) 8.9 10^3/uL (1.5-6.6); PLT - PLATELET COUNT 327 10^3/uL (130-450); RED BLOOD COUNT 5.18 10^6/uL (4.20-5.40); RED CELL DISTRIBUTION WIDTH 13.2 % (12.0-15.0); WHITE BLOOD COUNT 12.7 x10^3/uL (4.8-10.8)
[2022-06-08 19:06] LABS: ALBUMIN/GLOBULIN RATIO 1.1 (1.0-2.2); BILIRUBIN,TOTAL 0.4 mg/dL (0.2-1.0); CALCIUM 9.4 mg/dL (8.5-10.3); CREATININE 0.7 mg/dL (0.4-1.0); POTASSIUM 4.5 mmol/L (3.5-5.0); TOTAL PROTEIN 7.7 g/dL (6.7-8.2)
[2022-06-08 19:21] LABS: THYROID STIMULATING HORMONE 2.75 uIU/mL (0.34-5.60)
[2022-06-08 19:45] LABS: CREATININE,URINE 88.4 mg/dL; MICROALBUM/CREATININE RATIO,UR 18.1 ug/mg (<30.0); MICROALBUMIN,URINE 1.6 mg/dL (0-300.0)
[2022-06-08 21:03] LABS: ESTIMATED AVERAGE GLUCOSE 272 mg/dL (70-100); HEMOGLOBIN A1c% 11.1 % (4.27-6.07)
== END 2022-06-08 23:59 | disposition home or self-care (01) ==
LOC: LAB.N 08:00
PROVIDERS: ATTEND Family Medicine
DX: I10 Essential (primary) hypertension (principal); E11.8 Type 2 diabetes mellitus with unspecified complications
CPT/HCPCS: 36415; 80053; 82043; 82570; 83036; 84443; 85025

== ENCOUNTER 2022-08-08 12:43 | Outpatient (CLI) | payer BC ==
--- NOTE | 2022-08-09 12:20 | Mammography Report ---
UNILATERAL RIGHT DIGITAL DIAGNOSTIC MAMMOGRAM 3D/2D: 08/08/2022 CLINICAL: Palpable right breast lump. Comparison is made to exams dated: 12/31/2021 mammogram, 04/23/2021 mammogram - [facility], and 03/26/2017 mammogram - [facility]. There are scattered areas of fibroglandular density in the right breast (category b / 25%-50% glandul ar tissue). No significant masses, calcifications, or other findings are seen in the breast. IMPRESSION: INCOMPLETE: NEEDS ADDITIONAL IMAGING EVALUATION No mammographic evidence of malignancy. A targeted ultrasound is recommended and will immediately follow. Based on the Tyrer Cuzick model (a risk assessment model) the patients lifetime risk is 7.3% and her 10 year risk is 2.2%. According to the ACR, ACS, and NCCN guidelines, an annual breast MRI exam brian g with mammogram is recommended if the patients lifetime risk is 20% or greater. This exam was interpreted at Station ID: [id number]. NOTE: For mammograms, a report in lay terms will be sent to the patient. Approximately 15% of breast malignancies will not be visualized mammographically. In the management of a palpable breast mass, a negative mammogram must not discourage biopsy of a clinically suspicious lesion. Electronically Signed By: Derrick Albright M.D. slc/:08/08/2022 13:25:26 ACR BI-RADS Category 0: Incomplete 3340F PARENCHYMAL PATTERN: (A) - The breast(s) demonstrate(s) scattered fibroglandular densities. BI-RADS CATEGORY: (0) - 0 Ultrasound [id number] Immediate follow-up LATERALITY: (B)
--- NOTE | 2022-08-09 12:20 | Ultrasound Report ---
LIMITED ULTRASOUND OF RIGHT BREAST: 08/08/2022 CLINICAL: Palpable right breast lump. Comparison is made to exams dated: 08/08/2022 mammogram, 04/23/2021 mammogram - [facility], 03/26/2017 mammogram - [facility], and 07/23/2013 mammogram - [facility]. Right breast ultrasound 08/12/2014, 03/12/2010. Color flow and real-time ultrasound of the right breast 12 o'clock region were performed. Carpenter scale images of the real-time examination were reviewed. There is a benign 7.3 cm x 5.5 cm x 1.3 cm oval lipoma in the right breast at 12 o'clock posterior de pth 14 cm from the nipple. This oval lipoma is isoechoic. This abnormality is increased in size and correlates as palpated but was not seen on the prior mammogram. Color flow imaging demonstrates xuan t there is no vascularity present. IMPRESSION: BENIGN There is no sonographic evidence of malignancy. The 7.3 cm oval lipoma in the right breast is benign. Exam findings were discussed with the patient. Patient reports that the mass has been present since t eenage years. Patient denies pain. Patient also reports prior biopsy. Biopsy images are not available at this time. Patient is advised to monitor for significant change. Clinical follow-up as needed. A 1 year screening mammogram is recommended. This exam was interpreted at Station ID: [id number]. Electronically Signed By: Derrick Albright M.D. slc/:08/08/2022 14:09:35 Ultrasound BI-RADS: 2 Benign BI-RADS CATEGORY: (2) - 2 Mammogram [id number] 1 year screening LATERALITY: (B)
== END 2022-08-08 12:44 | disposition home or self-care (01) ==
LOC: DI 12:43
PROVIDERS: ATTEND Nurse Practitioner
DX: D17.79 Benign lipomatous neoplasm of other sites (principal)

== ENCOUNTER 2022-09-19 01:37 | Emergency (ER) | payer BC ==
--- NOTE | 2022-09-19 02:11 | ED Physician Documentation ---
History of Present Illness - Stated complaint Stated Complaint: KNEE PX, BILATERAL - Chief complaint Chief Complaint: Ext Problem - History obtained from History obtained from: Patient - Additonal information Additional information: HPI from patient. Patient complains of bilateral knee pain, gradual onset, constant and progressive, over the past 2 weeks. Patient says her past medical history includes psoriatic arthritis, osteoarthritis, and rheumatoid arthritis. She says she has had knee pain in the past associated with 1 or more of these diagnoses. She says that Cosentyx had been working well for symptom control but recently her insurance changed and the Cosentyx was not being covered by her new insurance. As result, she was started on Otezla; unfortunately, she had frequent diarrhea as a side effect of this new medication, and thus was told to stop the medication by her primary care provider two weeks ago. Cessation of the Otezla did result in resolution of the diarrhea, but also the onset of the bilateral knee pain noted above. The patient also has prescription oxycodone at home, which she is using sparingly, as she recognizes this is not a good long- term solution to control the pain. Pain is worse with weightbearing and ambulation. Partially ameliorated with rest. 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 - Present Medications Home Medications: Ambulatory Orders Medication Instructions Recorded Confirmed Metformin HCl [Glucophage Xr] 850 mg PO BID 02/08/13 09/19/22 glipiZIDE [Glipizide] 1 tab PO DAILY 03/17/17 09/19/22 lisinopriL [Lisinopril] 20 mg PO DAILY 03/17/17 09/19/22 Atorvastatin [Lipitor] 20 mg PO DAILY 09/19/22 09/19/22 allopurinoL [Zyloprim] 100 mg PO DAILY 09/19/22 09/19/22 predniSONE [Deltasone] 10 mg PO ONCE #26 tablet 09/19/22 - Allergies Allergies/Adverse Reactions: Allergies Allergy/AdvReac Type Severity Reaction Status Date / Time No Known Drug Allergies Allergy Verified 09/19/22 01:52 - Social History Does the pt smoke?: No Smoking Status: Never smoker Does the pt drink ETOH?: No Does the pt have substance abuse?: No - Immunizations Immunizations are current?: Yes - POLST Patient has POLST: No PD ED PE NORMAL - Vitals Vital signs reviewed: Yes - General General: Alert and oriented X 3, No acute distress, Well developed/nourished - Derm Derm: Normal color, Warm and dry, No rash - Extremities Extremities: No tenderness to palpate, No edema, Other (Range of motion intact bilateral knees, but increasing painful discomfort in proportion to the extent of knee flexion. There is no erythema, no abnormal warmth/heat touch of the knees. There is mild swelling of the left knee.) Results - Vitals Vitals: Vital Signs - 24 hr 09/19/22 09/19/22 01:40 03:00 Temperature 36.6 C 36.8 C Heart Rate 94 90 Respiratory 16 14 Rate Blood Pressure 170/78 H 155/90 H O2 Saturation 98 99 Oxygen O2 Source Room air PD Medical Decision Making - ED course Complexity details: considered differential, d/w patient ED course: No emergent testing is indicated at this time. There are no findings on the exam nor elements of the HPI to suggest infectious etiology. No recent injury to indicate radiologic studies. Unfortunately, analgesic options in this scenario are limited given that she is already using oxycodone without significant benefit. She says that she has tried methotrexate in the past and this resulted in significant and intolerable side effect, and other medications appropriate for psoriatic arthritis have either been tried or are outside of the scope of introducing these meds in the emergency department. She is given a dose of 60 mg p.o. prednisone in the emergency department and provided a prescription for same, to be tapered over the next 8 days. I instructed her to contact her prescribing physician to inform them that she needed to visit the emergency department for worsening knee pain, and hopefully she can be seen sooner than the appointment she is scheduled but is not for another month from today. Return precautions discussed. Departure - Departure Disposition: 01 Home, Self Care Clinical Impression: Arthritis Condition: Good Instructions: ED Arthritis Rheumatoid Follow-Up: Andrea Packer DO [Primary Care Provider] - Prescriptions: predniSONE [Deltasone] 10 mg PO ONCE #26 tablet Comments: You are given a dose of prednisone (steroid) in the emergency department tonight, and provided a prescription for a course of this same steroid to be tapered according to the instructions. Instructions for the taper should be on the prescription label, but I am also providing them here for the sake of clarity. 60 mg by mouth once per day for 2 days. Then take 40 mg by mouth once per day for 2 days. Then take 20 mg by mouth once per day for 2 days. Then take 10 mg once per day by mouth for 2 days. Since you are given a dose of prednisone in the emergency department (60 mg), you will be taking 60 mg/day for the first 3 days when considering that the prescription starts with 2 days of this same dose. 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 Discharge Date/Time: 09/19/22 03:04
[2022-09-19] MEDS ORDERED: predniSONE 20 MG TABLET PO STA (02:48)
[2022-09-19 03:04] VITALS: BP 155/90
== END 2022-09-19 03:04 | disposition home or self-care (01) ==
LOC: ED 01:37
DX: M17.0 Bilateral primary osteoarthritis of knee (principal)
CPT/HCPCS: 99282; 99283; J7512

== ENCOUNTER 2022-12-22 09:25 | Outpatient (CLI) | payer BC ==
--- NOTE | 2022-12-22 10:52 | Ultrasound Report ---
PROCEDURE: Pelvic w/Transvaginal INDICATIONS: ABNORMAL UTERINE BLEEDING TECHNIQUE: Real-time scanning was performed of the pelvic organs, with image documentation. Additional endovagi nal scanning was necessary due to incomplete visualization of the adnexal and endometrial structures by transabdominal scanning. COMPARISON: None. FINDINGS: Uterus: Uterus is anteverted and normal in size at 8.2 x 4.3 x 5.5 cm. The myometrium is heterogene ous, containing multiple fibroids. Largest fibroid measures 3.5 cm, and is subserosal. The endometri um measures 9 mm in combined thickness. Ovaries: The right ovary measures 2.0 x 1.4 x 1.9 cm, with a calculated ovarian volume of 2.8 cc. T he left ovary measures 2.8 x 1.7 x 1.7 cm, with a calculated ovarian volume of 4 cc. The ovaries hav e a normal sonographic appearance. Less than 12 follicles can be seen in each ovary. No adnexal mas ses are seen. No cystic lesions measuring greater than 3 cm. Other: No pathologic free abdominal or pelvic fluid. IMPRESSION: Multiple uterine fibroids. Endometrial stripe measures 9 mm, abnormal in the setting of postmenopausal bleeding. Consider tissue sampling. Reviewed by: Jass Danielson on 12/22/2022 10:50 AM PDT Approved by: Jass Danielson on 12/22/2022 10:50 AM PDT Station ID: [id number]
== END 2022-12-22 09:26 | disposition home or self-care (01) ==
LOC: DI 09:25
PROVIDERS: ATTEND Nurse Practitioner
DX: N93.9 Abnormal uterine and vaginal bleeding, unspecified (principal); D25.2 Subserosal leiomyoma of uterus; R93.89 Abnormal findings on diagnostic imaging of other specified body structures

== ENCOUNTER 2023-03-07 09:37 | Outpatient (CLI) | payer BC ==
--- NOTE | 2023-03-07 11:56 | Ultrasound Report ---
PROCEDURE: Abdomen Limited INDICATIONS: UPPER ABD PAIN TECHNIQUE: Real-time focused scanning was performed of the abdomen, with image documentation. COMPARISONS: CT abdomen pelvis without contrast 12/06/2013. FINDINGS: Liver: Increased liver echogenicity, commonly mild hepatic steatosis. Gallbladder: No wall thickening or sonographic Hilario sign. Several polyps are present largest measur ing 6 mm. Per ACR incidental findings guidelines, imaging follow-up is not necessary for polyps of th is size. No definite gallstones identified. Biliary ducts: Intrahepatic bile ducts are non-dilated. Extrahepatic bile duct caliber measures 5 m m. Normal is 6-7 mm or less in diameter, or 10 mm or less post-cholecystectomy. Pancreas: Visualized portions of the pancreas are sonographically normal. Right kidney: Right kidney measures 10.6 cm long. No hydronephrosis or nephrolithiasis. No complex re nal cystic lesions which require follow-up. IVC: Intrahepatic inferior vena cava is patent. Miscellaneous: No free abdominal fluid. IMPRESSION: 1. The liver is echogenic, a nonspecific finding commonly seen in the setting of steatosis. 2. No biliary ductal dilation demonstrated. Reviewed by: Michelet Jones MD on 03/07/2023 11:55 AM PDT Approved by: Michelet Jones MD on 03/07/2023 11:55 AM PDT Station ID: [id number]
== END 2023-03-07 09:38 | disposition home or self-care (01) ==
LOC: DI 09:37
PROVIDERS: ATTEND Physician Assistant
DX: R10.10 Upper abdominal pain, unspecified (principal)

== ENCOUNTER 2023-07-21 12:47 | Outpatient (CLI) | payer BC ==
--- NOTE | 2023-07-21 14:42 | Ultrasound Report ---
PROCEDURE: Chest INDICATIONS: RT upper chest lipoma TECHNIQUE: Real-time scanning was performed, and a suitable site was marked by the channeler runner for thoracentesis to be performed by the referring clinician. COMPARISON: Right breast ultrasound on August 08, 2022. FINDINGS: Right upper chest demonstrates an isoechoic mass measuring approximately 6.6 x x 6.2 x 1.4 cm, previo usly 7.3 x 5.5 x 1.3 cm. There is no internal vascularity. IMPRESSION: Similar size of right upper chest benign lipoma measuring approximately 6.6 x x 6.2 x 1.4 cm, previou sly 7.3 x 5.5 x 1.3 cm. Reviewed by: Juana Vera MD on 07/21/2023 2:41 PM PST Approved by: Juana Vera MD on 07/21/2023 2:41 PM PST Station ID: [id number]
--- NOTE | 2023-07-23 09:31 | Mammography Report ---
BILATERAL DIGITAL SCREENING MAMMOGRAM 3D/2D: 07/21/2023 CLINICAL: Routine screening. Comparison is made to exams dated: 08/08/2022 mammogram, 12/31/2021 mammogram, 06/14/2021 mammogram, 04/03 mammogram - [facility], 03/26/2017 mammogram - [facility], and 07/23/2013 mammogram - [facility]. There are scattered areas of fibroglandular density in both breasts (category b / 25%-50% glandular t issue). No significant masses, calcifications, or other findings are seen in either breast. There has been no significant interval change. IMPRESSION: NEGATIVE There is no mammographic evidence of malignancy. A 1 year screening mammogram is recommended. Based on the Tyrer Cuzick model (a risk assessment model) the patient's lifetime risk is 7.2% and her 10 year risk is 2.3%. According to the ACR, ACS, and NCCN guidelines, an annual breast MRI exam brian g with mammogram is recommended if the patient's lifetime risk is 20% or greater. This exam was interpreted at Station ID: [id number]. NOTE: For mammograms, a report in lay terms will be sent to the patient. Approximately 15% of breast malignancies will not be visualized mammographically. In the management of a palpable breast mass, a negative mammogram must not discourage biopsy of a clinically suspicious lesion. Electronically Signed By: Elmira Alonso M.D., PH.D eb/wilbert:07/22/2023 17:48:33 letter sent: No_Letter ACR BI-RADS Category 1: Negative 3341F PARENCHYMAL PATTERN: (A) - The breast(s) demonstrate(s) scattered fibroglandular densities. BI-RADS CATEGORY: (1) - 1 Mammogram [id number] 1 year screening LATERALITY: (B)
== END 2023-07-21 12:48 | disposition home or self-care (01) ==
LOC: DI 12:47
PROVIDERS: ATTEND Nurse Practitioner
DX: Z12.31 Encounter for screening mammogram for malignant neoplasm of breast (principal); R92.323 Mammographic fibroglandular density, bilateral breasts; D17.1 Benign lipomatous neoplasm of skin and subcutaneous tissue of trunk